=== PATIENT | male | born 1970 | race Caucasian/White ===

== ENCOUNTER → 2016-07-08 | Day surgery (SDC) | payer OTHER ==
[~2016-07-08] VITALS: Ht 182.9 cm; Wt 97.4 kg
[~2016-07-08] MED LIST: FISH OIL 1,2001 EAC1 PO; NORCO 5-325 MG1 TAB PO; THERA-VITE W/ B1 TAB PO
--- NOTE | ~2016-07-08 | OR ---
PATIENT'S NAME: [facility] AGE: 45 Y [address] ROOM: [place] [id number] [place] [facility] [place]: 07/08/2016 OR/Procedure Report DISCHARGE DATE: FAMILY PHYSICIAN: Jane Fuller MD ATTENDING PHYSICIAN: Flip Covarrubias SURGEON: Flip Covarrubias MD CIVIL PROCESS SERVER: DATE OF PROCEDURE: 07/08/2016 PREOPERATIVE DIAGNOSES: 1. History of low-grade and noninvasive urothelial carcinoma, originally diagnosed in December 2015 with recurrence in March 2016. 2. History of left testicular cancer. 3. Status post orchiectomy and radiation therapy. POSTOPERATIVE DIAGNOSES: 1. History of low-grade and noninvasive urothelial carcinoma, originally diagnosed in December 2015 with recurrence in March 2016. 2. History of left testicular cancer. 3. Status post orchiectomy and radiation therapy. 4. Pathology pending. PROCEDURE: 1. Cystoscopy with retrograde. 2. Bladder biopsy. ANESTHESIA: Sedation. INDICATION: This is a 45-year-old gentleman with the above-noted diagnosis. When I had seen him in the office in March, he had an obvious, papillary recurrence at the 1 o'clock position on the bladder neck. That was fulgurated. He presents at this time for cystoscopy, upper tract evaluation, and biopsy resection of any other areas. DESCRIPTION OF PROCEDURE: Having obtained informed consent, the patient was taken to the operating room. Prepped and draped sterilely in lithotomy position. IV sedation was administered. 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 It was also noted that after his preoperative dose of Levaquin, he developed hives, we will with status an allergy. Cystoscopy is undertaken. The course of the urethra was unremarkable. The bladder itself demonstrates no obvious tumor, stones, or foreign bodies. He has significant scarring on the left side. The left orifice is misshapen as PATIENT'S NAME: KELY [facility] AGE: 45 Y [address] ROOM: [place] [id number] [place]: [facility] [place]: 07/08/2016 OR/Procedure Report DISCHARGE DATE: FAMILY PHYSICIAN: Jane Fuller MD ATTENDING PHYSICIAN: Flip Covarrubias previous. Importantly, I do not see any obvious papillary recurrence. He has some erythematous area posterior toward the left side. Careful examination of bladder using the 30- and 70-degree lenses reveals no other abnormalities. Preliminary survey reveals normal gas pattern and soft tissue outlines. There are no abnormal calcifications. Contrast was instilled bilaterally. The upper tracts were pristine and symmetric. They were delicate and unobstructed. There were no filling defects. Calices were finely cupped. The cold cup biopsy forceps were placed. The posterior tissue was biopsied. I then cauterized the biopsy site and the periphery with the [place]. We have good hemostasis. The patient tolerated the procedure well. BLOOD LOSS: Negligible. The above-noted specimen was sent. The patient returned to Recovery in awake and stable condition. FLIP COVARRUBIAS MD [facility]/modl /[id number] CC: Jane Fuller MD d: 07/08/16 1416 t: 07/16/16 1448, OPERATIVE SUMMARY
[2016-07-08 11:45] LABS: BASOPHIL % 0.5 %; EOSINOPHIL # 0.2 K/uL (0.0-0.5); EOSINOPHIL % 1.8 %; HEMATOCRIT 45.2 % (37.0-53.0); HEMOGLOBIN 15.6 g/dL (12.0-17.0); IMMATURE GRANULOCYTE % 0.5 %; LYMPHOCYTE # 1.6 K/uL (0.8-4.0); LYMPHOCYTE % 19.4 %; MCHC 34.5 gm/dL (32.0-36.5); MCV 92.6 fl (83.0-98.0); MONOCYTE # 0.6 K/uL (0.0-1.0); MONOCYTE % 7.4 %; MPV 10.8 fl (9.4-12.4); NEUTROPHIL # (ANC) 5.7 K/uL (1.4-9.0); NEUTROPHIL % 70.4 %; NRBC % 0 /100WBC (0-0.00); PLATELET COUNT 221 K/uL (150-450); RBC 4.88 M/uL (4.00-6.00); RDW-CV 13.2 % (11.9-14.6); WBC 8.1 K/uL (4.0-11.0)
[2016-07-08 12:03] LABS: ALBUMIN 4.1 gm/dL (3.5-5.0); ALK PHOS 55 IU/L (33-138); ALT 75 IU/L (12-78); ANION GAP 10.6 (10.0-19.0); AST 26 IU/L (10-40); BLOOD UREA NITROGEN 14 mg/dL (6-24); CALCIUM 8.7 mg/dL (8.5-10.5); CHLORIDE 107 mMol/L (96-110); CO2 27 mMol/L (22-32); ESTIMATED GFR (MDRD EQUATION) > 60; POTASSIUM 3.6 mMol/L (3.7-5.1); SODIUM 141 mMol/L (135-145); TOTAL BILIRUBIN 0.8 mg/dL (0.0-1.5); TOTAL PROTEIN 7.7 g/dL (6.0-8.4)
== END | disposition disaster alternative care site (69) ==
LOC: GPOC 07-01 10:00 → GSDC 10:00
PROVIDERS: Urology
PROC: BT14ZZZ Fluoroscopy of Kidneys, Ureters and Bladder (ICD-10-PCS; principal; 2016-07-08)
PROC: 0TBB8ZX Excision of Bladder, Via Natural or Artificial Opening Endoscopic, Diagnostic (ICD-10-PCS; 2016-07-08)
DX: N32.89 Other specified disorders of bladder (principal); Z85.51 Personal history of malignant neoplasm of bladder; Z85.47 Personal history of malignant neoplasm of testis; Z88.2 Allergy status to sulfonamides; Z98.890 Other specified postprocedural states
CPT/HCPCS: J1956; J7120